=== PATIENT | female | born 1945 | race Caucasian/White ===

== ENCOUNTER 2018-09-21 10:37 | Inpatient (IN) | payer MEDICARE ==
[2018-09-21] MEDS ORDERED: ISOVUE-370 76%-LOCM 1 ML ONE (10:43)
[2018-09-21] MEDS ORDERED: Piperacillin/Tazobactam 4.5 GM VIAL ONE (11:36)
[2018-09-21 11:51] LABS: Anisocytosis SLIGHT = 6-15 cells (100X) (0-5/hpf); Band 18 % (5-11); Eosinophils 1 % (0-10); Hemoglobin 12.8 g/dL (12.0-16.0); Lymphocytes 11 % (21-51); MDiff Complete? YES; Mean Corpuscular HGB CONC 30.2 g/dL (32.0-36.0); Mean Corpuscular Hemoglobin 25.2 pg (27.0-31.0); Mean Corpuscular Volume 83.4 fL (78.0-98.0); Mean Platelet Volume 6.4 fL (7.4-10.4); Monocytes 7 % (0-10); Neutrophil 63 % (42-75); Platelet Count 154 thou/uL (130-400); RBC Distribution Width 22.4 % (11.5-14.5); Red Blood Cell (RBC) Count 5.07 mill/uL (4.20-5.40); White Blood Cell (WBC) Count 9.4 thou/uL (4.8-10.8)
--- NOTE | 2018-09-21 11:58 | RAD ---
RIGHT HIP 2 VIEWS: Date: 09/21/18 HISTORY: Fall. Right hip injury. FINDINGS: Joint space is preserved. Femoral head contour maintained. No acute fracture or dislocation. Osseous structures are demineralized. IMPRESSION: 1. Normal appearance of the right hip. 2. Osteoporosis. POS: [facility]
--- NOTE | 2018-09-21 11:59 | RAD ---
AP PELVIS 1 VIEW: Date: 09/21/18 HISTORY: Fall. Right hip injury. FINDINGS: No displaced sacral fractures are apparent. It is predominantly obscured by bowel content and postope rative changes. Left hip is in internal rotation and incompletely evaluated. Right hip unremarkable. Osseous structures are demineralized. IMPRESSION: Osteoporosis. No acute osseous abnormalities are demonstrated. POS: [facility]
--- NOTE | 2018-09-21 12:00 | RAD ---
PORTABLE AP CHEST: Date: 09/21/18 HISTORY: Patient fell from wheelchair. Unwitnessed fall. Sepsis alert. Left arm edema. COMPARISON: None available. FINDINGS: The cardiac silhouette and pulmonary vasculature are within normal limits. The lungs are clear. There are curvilinear densities overlying region of the mediastinum, likely related to overlying skin fold s. Vascular calcifications seen in thoracic aorta. Osteopenia is present. IMPRESSION: No acute cardiopulmonary process. POS: [facility]
[2018-09-21 12:20] LABS: ALT (SGPT) 33 U/L (8-55); AST (SGOT) 50 U/L (5-34); Albumin 2.5 g/dL (3.4-4.8); Alkaline Phosphatase 51 U/L (40-150); Anion Gap 16 mmol/L (10-20); BUN (Urea Nitrogen) 19 mg/dL (9.8-20.1); Bilirubin, Total 0.9 mg/dL (0.2-1.2); Calc. Creatinine Clearance 0 mL/min (70-130); Calcium 8.5 mg/dL (7.8-10.44); Carbon Dioxide 24 mmol/L (23-31); Chloride 103 mmol/L (98-107); Estimated GFR-MDRD 64; Globulin 4.3 g/dL (2.4-3.5); Glucose 171 mg/dL (83-110); Protein, Total 6.8 g/dL (6.0-8.3); Sodium 138 mmol/L (136-145)
[2018-09-21 12:54] LABS: Bilirubin Small (Negative); Blood, Urine Negative (Negative); Clarity CLOUDY (Clear); Glucose, Urine (Dipstick) Negative (Negative); Leukocyte Negative (Negative); Nitrite Negative (Negative); Protein, Urine (Dipstick) Trace mg/dL (Neg-Trace); Specific Gravity, Urine 1.024 (1.002-1.036)
--- NOTE | 2018-09-21 15:10 | CT ---
NONCONTRAST CT HEAD: Date: 10/09/18 HISTORY: Injury after unwitnessed fall. Patient wound lying on right side. COMPARISON: 01/18/17. FINDINGS: A few scattered low density areas are seen within the periventricular white matter which are nonspeci fic but likely reflective of mild chronic small vessel ischemic changes. There is no evidence of an a cute cortical infarction, hemorrhage, mass effect, or midline shift. Stable low density areas are aga in seen within the harpreet and mid brain, as well as the left cerebellar hemisphere, likely attributable to remote infarctions. There is no acute cortical infarction, hemorrhage, mass effect, or midline sh ift. There is a low density area in the left thalamus, which was not present on the prior study, comp atible with lacunar infarction of indeterminate again. Again, no acute cortical infarction or hemorrh age is seen. Mild cerebral and cerebellar volume loss is present. Ventricular system is normal in size, shape, and position for the degree of sulcal atrophy. Mucosal thickening is seen within the right maxillary antrum, bilateral ethmoidal air cells, as well as each frontal sinus. No calvarial fracture is identified. There is opacification of an inferior left mastoid air cell, als o seen on prior exam. Vascular calcifications are seen in the carotid siphons and involving the dista l vertebral artery, similar to prior study. IMPRESSION: 1. Lacunar infarction left thalamus of indeterminate age. This does represent interval change from dimitri jacobson in 2017. No acute cortical infarction is seen. 2. Remote infarctions involving the brain stem, harpreet, and left cerebellar hemisphere. 3. Cerebral and cerebellar volume loss. 4. No evidence of hemorrhage. 5. Sinus disease. POS: [facility]
--- NOTE | 2018-09-21 15:18 | CT ---
CT ARTERIOGRAM CHEST WITH IV CONTRAST AND 3D MIP IMAGING: Date: 09/21/18 HISTORY: Chest pain. Dyspnea. FINDINGS: There is good contrast opacification of the pulmonary arteries and thoracic aorta with normal origin of the great vessels. Right subclavian artery is tortuous and curves just anterior to the trachea abo ve the sternal notch. There is atelectasis at each lung base. Calcification within the arterial struc tures. Within the partially visualized upper abdomen, hyperdense stones are apparent within the gallb ladder lumen. A well circumscribed soft tissue density mass at the right suprarenal level measures at least 3.3 cm AP diameter and is at Hounsfield unit measurements greater than can be described as an adrenal adenoma. IMPRESSION: 1. No CT evidence of pulmonary embolus. 2. Atherosclerosis. 3. Cholelithiasis. 4. Partially visualized low density right suprarenal mass. Adrenal mass is favored. Please consider dedicated CT abdomen, with and without IV contrast, employing an adrenal adenoma prot ocol, for better characterization. POS: [facility]
[2018-09-21 16:09] LABS: Lactic Acid 1.5 mmol/L (0.5-2.2)
--- NOTE | 2018-09-21 16:34 | HP ---
PRIMARY CARE PHYSICIAN: Sara Wilson MD CHIEF COMPLAINT: The [facility]. HISTORY OF PRESENT ILLNESS: Ms. Luna is a 73-year-old female, who has had multiple strokes. She most recently has had a hemorrhagic stroke about 3 months ago according to her daughter, who is at the bedside. Apparently, she was in her usual state of health until today, where jail staff found her on the ground next to the wheelchair, this was an unwitnessed fall. She was pointing to her right side and so they were concerned that she may have injured herself after or during the fall. She was brought to the emergency room for evaluation. In the ER, she had a CT scan of the brain, which was negative. An x-ray of her pelvis and hips, which were negative for fractures, as well as a CT angiogram of her chest. The preliminary results are pending. There was concern for possible sepsis syndrome as she was a bit hypotensive and febrile and for this reason, she is going to be placed in observation. The patient's daughter says that she has been residing in the jail for the last few months. There, she is essentially wheelchair bound. She does not walk, but she had gotten to the point, where she was able to feed herself. Her speech is very limited and this is after her stroke and she also has difficulty with swallowing and has been "an aspiration risk and she does eat a pureed diet with thickened liquids". Otherwise, no other history is obtainable. REVIEW OF SYSTEMS: This is unobtainable as the patient has fairly severe dysarthria. PAST MEDICAL HISTORY: Significant for coronary artery disease, cerebral vascular disease with a cerebellar stroke that left her with left-sided weakness. A hemorrhagic stroke that left her with dysphagia and dysarthria and some right-sided deficits. Also has hypertension, anemia, and polyps removed. PAST SURGICAL HISTORY: She has had a colonoscopy recently, in which there was found bleeding polyps. She has had stents placed, lens implants, rods in her neck, and leg surgery. She has had breast augmentation and then reduction. ALLERGIES: TO PROTONIX AND PROCAINE. SOCIAL HISTORY: She is . She is a nonsmoker. She drinks socially, but not any more. Her daughter, Yola Mcclure is her medical power of litigation attorney. Her code status is DNAR and she resides at [facility], where she is essentially wheelchair bound. FAMILY HISTORY: Significant for heart disease in her father. CURRENT MEDICATIONS: Her current medications are taken from the jail records and include; 1. Metoprolol 25 mg twice a day. 2. Potassium chloride 20 mEq daily. 3. Simvastatin 40 mg at bedtime. 4. Vitamin C 1000 mg daily. 5. Iron sulfate 325 mg daily. 6. Tylenol p.r.n. 7. Tramadol 50 mg q.8 as needed. 8. Amlodipine 5 mg daily. 9. Lisinopril 30 mg daily. 10. Zyrtec [id number] as needed. 11. Flonase nasal spray. 12. Astelin nasal spray. PHYSICAL EXAMINATION: GENERAL: She is alert, unable to assess orientation due to her severe dysarthria. She is well developed and well nourished. She does appear to be in some distress, mainly emotional distress due to being in the hospital. VITAL SIGNS: The blood pressure was 89/50, heart rate 90, respiratory rate of 26, and her temperature was 100.6 rectally. HEENT: Her pupils are reactive and equal. NECK: There was no adenopathy. No bruits. LUNGS: Clear with an occasional rhonchi. There was no rales or wheezing. CARDIOVASCULAR: She had a normal S1 and S2. There was no S3 or S4. No murmurs, clicks, or rubs. ABDOMEN: Obese it is soft, nontender, and nondistended. Positive for bowel sounds. No rebound or guarding. EXTREMITIES: She has trace edema primarily around the ankles and some mild erythema on the dorsum of her feet. NEUROLOGIC: She has severe dysarthria, a flaccid paralysis of the left upper extremity, and weakness of the left lower extremity. SKIN AND INTEGUMENT: There is no significant skin changes and no rash. Also, she did have some significant swelling in the left upper extremity. LABORATORY RESULTS: White blood cell count is 9.4, hemoglobin is 12.8, hematocrit is 42.2, and platelet count is 154. Sodium 138, potassium 5.0, chloride is 102, CO2 is 24, BUN of 19, creatinine 0.86, and glucose is 171. ASSESSMENT AND PLAN: 1. This is a pleasant 73-year-old female, who had a fall from the jail. It appears as if she has not suffered any significant injury from this. There is no significant bruising on exam and her x-rays were negative for fracture. However, her lactic acid level was elevated and she had a low-grade temperature and an increased respiratory rate. Therefore, she will be monitored in observation overnight. We will place her on empiric antibiotics to cover for possible aspiration pneumonia and re-check her lab work in the morning. If she is clinically stable, then I would expect that she could be transferred back to the jail. 2. For hypertension, restart her home medications as well as p.r.n. medications as well. 3. History of cerebrovascular accident. Again, continue her statin. She does not appear to be on any anti-platelet or anticoagulation likely due to her recent hemorrhagic stroke and we will avoid any anticoagulants as a result. 4. Deep venous thrombosis prophylaxis will be with sequential compression devices only and we will re-evaluate her in the a.m.. Job ID: [id number]
[2018-09-21] MEDS ORDERED: hydrALAZINE 20 MG/ML VIAL SLOW IVP PRN (19:11)
[2018-09-21] MEDS: Sodium Chloride 0.9% 1,000 ML IV SCH (20:44)
[2018-09-21] MEDS: Metoprolol Tartrate 25 MG TAB PO SCH (20:48)
[2018-09-21] MEDS: Atorvastatin Calcium 20 MG TAB PO SCH (20:48)
[2018-09-22 00:04] VITALS: BMI 22.3
[2018-09-22 08:03] LABS: Anion Gap 10 mmol/L (10-20); BUN (Urea Nitrogen) 13 mg/dL (9.8-20.1); Calc. Creatinine Clearance 89 mL/min (70-130); Calcium 7.9 mg/dL (7.8-10.44); Carbon Dioxide 23 mmol/L (23-31); Chloride 109 mmol/L (98-107); Estimated GFR-MDRD Greater than 90; Glucose 77 mg/dL (83-110); Potassium 3.7 mmol/L (3.5-5.1); Sodium 138 mmol/L (136-145)
[2018-09-22 09:30] LABS: Band 14 % (5-11); Eosinophils 1 % (0-10); Lymphocytes 9 % (21-51); MDiff Complete? YES; Mean Corpuscular HGB CONC 30.9 g/dL (32.0-36.0); Mean Corpuscular Hemoglobin 25.1 pg (27.0-31.0); Mean Corpuscular Volume 81.3 fL (78.0-98.0); Metamyelocyte 2 % (0-0); Monocytes 7 % (0-10); Neutrophil 67 % (42-75); Platelet Count 153 thou/uL (130-400); RBC Distribution Width 21.5 % (11.5-14.5); Red Blood Cell (RBC) Count 3.99 mill/uL (4.20-5.40); White Blood Cell (WBC) Count 5.9 thou/uL (4.8-10.8)
[2018-09-22] MEDS: Sodium Chloride 0.9% 1,000 ML IV SCH ×2 (10:33→22:48)
[2018-09-22] MEDS: Metoprolol Tartrate 25 MG TAB PO SCH ×2 (10:51→20:27)
[2018-09-22] MEDS: Lisinopril 20 MG TAB PO SCH (10:51)
[2018-09-22] MEDS: Amlodipine 5 MG TAB PO SCH (10:51)
--- NOTE | 2018-09-22 15:06 | PDOC.PN ---
- Subjective Encounter Start Date: 09/22/18 Encounter Start Time: 15:05 Ms. Luna was seen today in follow-up of fall and fever. she appears to be at her baseline. Her son is at the bedside feeding her. - Objective Resuscitation Status - Order Detail: 09/21/18 15:58 Resuscitation Status Routine Resuscitation Status: DNAR: NO Resuscitation Discussed with: discussed with the patient's daughter Yola MILLER Reviewed: Yes Vital Signs & Weight: Vital Signs (12 hours) Temp Pulse Resp BP Pulse Ox 09/22/18 13:55 97.9 F 81 20 96/59 L 92 L 09/22/18 10:51 79 09/22/18 08:07 97.8 F 79 20 107/64 97 09/22/18 08:00 97 09/22/18 05:10 98.9 F 81 22 H 93/56 L 98 Weight Weight 130 lb Result Diagrams: 09/22/18 06:52 09/22/18 06:52 Phys Exam - Physical Examination HEENT: PERRLA Respiratory: no wheezing, no rales, no rhonchi, clear to auscultation bilateral Cardiovascular: RRR, no significant murmur, no rub Gastrointestinal: soft, non-tender, positive bowel sounds Musculoskeletal: no edema Dx/Plan (1) Fever Code(s): R50.9 - FEVER, UNSPECIFIED Status: Acute (2) CVA (cerebral vascular accident) Code(s): I63.9 - CEREBRAL INFARCTION, UNSPECIFIED Status: Chronic (3) Dysphagia as late effect of stroke Code(s): I69.391 - DYSPHAGIA FOLLOWING CEREBRAL INFARCTION Status: Chronic (4) Hypertension Code(s): I10 - ESSENTIAL (PRIMARY) HYPERTENSION Status: Chronic - Plan * Fever and sepsis syndrome- continue empiric Levaquin- await final cultures- negative so far * HTN- blood pressure is on the lower side, but she is asymptomatic- consider cutting back on her antihypertensives if this trend continues- however she has had a recent hemorrhagic stroke * CVA- multiple in the past 6 months, and a hemorrhagic stroke 3 months ago- stable * Back to the [place] tomorrow if stable .
--- NOTE | 2018-09-22 17:42 | RAD ---
LEFT FOREARM TWO VIEWS: HISTORY: Arm pain. TECHNIQUE: AP and lateral views of the left forearm are obtained. FINDINGS: Two views of the left forearm demonstrate an old healed distal left radial fracture. Plates and scre ws are in place. No evidence of loosening is seen. No other left forearm fractures or bony lesions are seen. IMPRESSION: No evidence of acute left forearm abnormalities noted. POS: [facility]
--- NOTE | 2018-09-22 17:50 | RAD ---
LEFT SHOULDER TWO VIEWS: HISTORY: Left arm pain. TECHNIQUE: AP and lateral views of the left shoulder are obtained. FINDINGS: No evidence of left shoulder fractures, subluxations, or bony lesions seen. IMPRESSION: Normal two views left shoulder. POS: [facility]
[2018-09-22] MEDS: Acetaminophen 325 MG TAB PO PRN (18:25)
[2018-09-22] MEDS: Atorvastatin Calcium 20 MG TAB PO SCH (20:27)
[2018-09-23] MEDS: Acetaminophen 325 MG TAB PO PRN (07:56)
[2018-09-23] MEDS: Amlodipine 5 MG TAB PO SCH (07:56)
[2018-09-23] MEDS: Metoprolol Tartrate 25 MG TAB PO SCH ×2 (07:57→20:27)
[2018-09-23] MEDS: Lisinopril 20 MG TAB PO SCH (10:50)
--- NOTE | 2018-09-23 10:50 | PDOC.PN ---
- Subjective Encounter Start Date: 09/23/18 Encounter Start Time: 12:50 Subjective: Patient difficult to understand. Complains of being cold. Wants to go -: home. States she lives in an apartment. Doen't remember living in a -: retirement. Knows she is in a hospital. - Objective Resuscitation Status - Order Detail: 09/21/18 15:58 Resuscitation Status Routine Resuscitation Status: DNAR: NO Resuscitation Discussed with: discussed with the patient's daughter Yola MILLER Reviewed: Yes Vital Signs & Weight: Vital Signs (12 hours) Temp Pulse Resp BP BP Pulse Ox 09/23/18 07:56 68 110/67 09/23/18 07:51 97.9 F 68 20 110/67 96 09/23/18 00:35 98.5 F 88 20 106/68 95 Weight Weight 130 lb I&O: 09/22/18 09/23/18 09/24/18 06:59 06:59 06:59 Intake Total 750 Balance 750 Result Diagrams: 09/22/18 06:52 09/22/18 06:52 Phys Exam - Physical Examination Constitutional: NAD HEENT: moist MMs very weak voice, facial droop and slurred speech Respiratory: no wheezing, no rales, no rhonchi Cardiovascular: RRR, no significant murmur Gastrointestinal: soft, positive bowel sounds Neurological: non-focal, moves all 4 limbs Deviation from normal: alert, oriented to person Dx/Plan (1) Fever Code(s): R50.9 - FEVER, UNSPECIFIED Status: Resolved Comment: single fever to 100.6 in ER, none since then, possibly had some aspiration but no infiltrate on CXR and normal WBC, on abx (2) CVA (cerebral vascular accident) Code(s): I63.9 - CEREBRAL INFARCTION, UNSPECIFIED Status: Chronic (3) Dysphagia as late effect of stroke Code(s): I69.391 - DYSPHAGIA FOLLOWING CEREBRAL INFARCTION Status: Chronic Comment: seen by speech therapy, severe aspiration with all foods and liquids, made NPO, will discuss with family (4) Hypertension Code(s): I10 - ESSENTIAL (PRIMARY) HYPERTENSION Status: Chronic - Plan cont current plan of care, continue antibiotics, speech therapy Attempted to call patient's daughter but the number we have says not -: accepting any calls. Apparently speech therapy was unable to get a hold -: of her also. Will see if Palliative care is familiar with this patient or -: can contact family. * . - Discharge Day Encounter end time: 13:00
[2018-09-23] MEDS: Sodium Chloride 0.9% 1,000 ML IV SCH (13:10)
[2018-09-23] MEDS: Atorvastatin Calcium 20 MG TAB PO SCH (20:27)
[2018-09-24] MEDS: Sodium Chloride 0.9% 1,000 ML IV SCH ×2 (02:12→14:54)
[2018-09-24] MEDS: Lisinopril 20 MG TAB PO SCH (08:38)
[2018-09-24] MEDS: Amlodipine 5 MG TAB PO SCH (08:39)
[2018-09-24] MEDS: Metoprolol Tartrate 25 MG TAB PO SCH ×2 (08:39→20:23)
--- NOTE | 2018-09-24 09:17 | PDOC.PN ---
- Subjective Encounter Start Date: 09/24/18 Encounter Start Time: 11:10 Subjective: Patient sleeping heavily, difficult to arrouse. Was very awake this morning -: when seen by ST, still with sig aspiration, better with nectar thick. Patie -: was communicative at that time, wanted to try to eat with risk. - Objective Resuscitation Status - Order Detail: 09/21/18 15:58 Resuscitation Status Routine Resuscitation Status: DNAR: NO Resuscitation Discussed with: discussed with the patient's daughter Yola MILLER Reviewed: Yes Vital Signs & Weight: Vital Signs (12 hours) Temp Pulse Resp BP BP BP Pulse Ox 09/24/18 08:39 80 103/63 09/24/18 08:38 103/63 09/24/18 07:26 97.7 F 81 22 H 103/63 95 09/24/18 05:43 98.2 F 88 20 111/69 91 L 09/24/18 00:46 98.1 F 89 20 119/71 92 L Weight Weight 130 lb I&O: 09/23/18 09/24/18 09/25/18 06:59 06:59 06:59 Intake Total 750 1140 Balance 750 1140 Result Diagrams: 09/22/18 06:52 09/22/18 06:52 Phys Exam - Physical Examination Constitutional: NAD HEENT: moist MMs Respiratory: no wheezing, no rales, no rhonchi very odd but regular breathing pattern with three small inhalations followe by three exhalations, nurse states NH reported this is nml for patient Cardiovascular: RRR, no significant murmur Musculoskeletal: no edema Neurological: non-focal Deviation from normal: very sleepy right now, not communicating Dx/Plan (1) Fever Code(s): R50.9 - FEVER, UNSPECIFIED Status: Resolved Comment: single fever to 100.6 in ER, none since then, possibly had some aspiration but no infiltrate on CXR and normal WBC, on abx (2) CVA (cerebral vascular accident) Code(s): I63.9 - CEREBRAL INFARCTION, UNSPECIFIED Status: Chronic (3) Dysphagia as late effect of stroke Code(s): I69.391 - DYSPHAGIA FOLLOWING CEREBRAL INFARCTION Status: Chronic Comment: seen by speech therapy, severe aspiration with all foods and liquids, made NPO, have left message for MPOA to call back but not heard from her yet, patient was more coherent with ST, but given her fluctuating orientation and alertness, I am not sure how well patient can understand or consent to feeds with extreme risk. (4) Hypertension Code(s): I10 - ESSENTIAL (PRIMARY) HYPERTENSION Status: Chronic - Plan cont current plan of care need to determine course of action concerning severe dysphagia, unable to -: contact daughter yet * . - Discharge Encounter end time: 11:20
--- NOTE | 2018-09-24 11:56 | PQF ---
CLINICAL DOCUMENTATION IMPROVEMENT CLARIFICATION FORM: ICD-10 Updated PLEASE DO AN ADDENDUM TO THE PROGRESS NOTE WITH ANY DOCUMENTATION UPDATES OR ADDITIONS AND CARRY THROUGH TO DC SUMMARY. THANK YOU. DATE: 09/24/2018 ATTN: Dr. Trevizo Please exercise your independent, professional judgment in responding to the clarification form. Clinical indicators are provided on the bottom of this form for your review Please check appropriate box(es): [ X ] Sepsis due to: (Pna, etc.) ___Aspiration pneumonitis __ [ ] SIRS due to non-infectious process (please specify etiology) [ ] with organ dysfunction [ ] without organ dysfunction [ ] Localized infection without sepsis [ ] Other diagnosis [ ] Unable to determine In addition, please specify: Present on Admission (POA): [ X ] Yes [ ] No [ ] Unable to determine For continuity of documentation, please document condition throughout progress notes and discharge summary. Thank You. CLINICAL INDICATORS - SIGNS / SYMPTOMS / LABS H&P 3/: BP 89/50, HR 90, resp. rate 26, Temp 100.6 Severe dysarthria lactic acid level was elevated and she had low grade temp. and increased resp. rate. Will place her on empiric antibiotics to cover for possible aspiration pneumonia Labs: 3 Lactic Acid 3.8 Glucose 171 PN 3: Fever and sepsis syndrome - continue empiric Levaquin - await final cultures PN 3: Fever resolved. Single fever to 100.6 in ER, none since then, possibly had some aspiration but no infiltrate on CXR and normal WBC, on abx RISKS: H&P 3/2: 73 yr old. Significant CAD. A hemorrhagic stroke that left her with dysphagia and dysarthria and r sided deficits. HTN. TREATMENT: ORDER 3: NS IV 75 mls/hr ORDER 3: Levaquin 500 mg IV Thank you, Ellie (This form is maintained as a part of the permanent medical record) 2014 [employer] All Rights Reserved Ellie Garcia RN, BSN [email or web address] Office: [phone] [facility]
--- NOTE | 2018-09-24 12:49 | PQF ---
CLINICAL DOCUMENTATION IMPROVEMENT CLARIFICATION FORM: ICD-10 Updated PLEASE DO AN ADDENDUM TO THE PROGRESS NOTE WITH ANY DOCUMENTATION UPDATES OR ADDITIONS AND CARRY THROUGH TO DC SUMMARY. THANK YOU. DATE: 09/24/2018 ATTN: Dr. Trevizo Please exercise your independent, professional judgment in responding to the clarification form. Clinical indicators are provided on the bottom of this form for your review Please check appropriate box(s): [ X ] I (concur) with the Nursing Assessment findings as stated below. [ X ] Pressure Ulcer: (Stage I: Erythema; Stage II: Partial thickness; Stage III : Full thickness; Stage IV: Necrosis to muscle/bone) [ X ] Location: ___Sacrum POA: [ X ] Yes [ ] No[ ] Unable to determine Stage (I to IV): _2__(Left___Right___Bilateral___N/A__) [ ] Location: POA: [ ] Yes [ ] No[ ] Unable to determine Stage (I to IV): ___(Left___Right___Bilateral___N/A__) [ ] No pressure ulcer diagnosis [ ] Deep tissue injury [ ] Other diagnosis [ ] Unable to determine In addition, please specify: Present on Admission (POA): [ X ] Yes [ ] No [ ] Unable to determine For continuity of documentation, please document condition throughout progress notes and discharge summary. Thank You. CLINICAL INDICATORS - SIGNS / SYMPTOMS / LABS ER Nurses Assessment Skin 09/21: pressure ulcer to the sacrum, Stage II Nursing Assessment 09/21 @ 1999: SCG x2 Pressure Ulcer. Stage II x 2 areas. RISKS: H&P 09/21: 73 yr old. Recently has had a hemorrhagic stroke about 3 months ago. Essentially wheelchair bound. Hx significant for CAD, Cerebral vascular disease. HTN TREATMENT: Skin interventions per Nursing protocol: Skin kept from excessive moisture. Turn 30 degrees side to side. Support pillows placed - Pre-ulcer skin changes limited to persistent focal edema (Stage 1) Abrasion, blister, partial thickness skin loss involving epidermis and/or dermis (Stage 2) Full thickness skin loss involving damage or necrosis of SQ tissue. (Stage 3) Necrosis of soft tissue through to underlying muscle, tendon, or bone. (Stage 4) Purple or maroon discolored skin or blood filled blister Thank you, Ellie (This form is maintained as a part of the permanent medical record) 2015 [employer] All Rights Reserved Ellie Garcia RN, BSN [email or web address] Office: [phone] [facility]
[2018-09-24] MEDS ORDERED: Acetaminophen 650 MG Suppository PR PRN (14:42)
[2018-09-24] MEDS: Atorvastatin Calcium 20 MG TAB PO SCH (20:23)
[2018-09-25] MEDS: Sodium Chloride 0.9% 1,000 ML IV SCH (03:46)
[2018-09-25] MEDS: Amlodipine 5 MG TAB PO SCH (07:51)
[2018-09-25] MEDS: Lisinopril 20 MG TAB PO SCH (07:52)
[2018-09-25] MEDS: Metoprolol Tartrate 25 MG TAB PO SCH ×2 (07:52→20:45)
--- NOTE | 2018-09-25 09:34 | PDOC.PN ---
- Subjective Encounter Start Date: 09/25/18 Encounter Start Time: 11:50 Subjective: Patient more alert today. Can't understand her language. - Objective Resuscitation Status - Order Detail: 09/21/18 15:58 Resuscitation Status Routine Resuscitation Status: DNAR: NO Resuscitation Discussed with: discussed with the patient's daughter Yola MILLER Reviewed: Yes Vital Signs & Weight: Vital Signs (12 hours) Temp Pulse Resp BP BP Pulse Ox 09/25/18 07:52 107/66 09/25/18 07:51 82 107/66 09/25/18 07:43 97.4 F L 82 20 107/66 96 Weight Weight 130 lb I&O: 09/24/18 09/25/18 09/26/18 06:59 06:59 06:59 Intake Total 1140 1846 Balance 1140 1846 Result Diagrams: 09/22/18 06:52 09/22/18 06:52 Phys Exam - Physical Examination Constitutional: NAD HEENT: moist MMs Respiratory: no wheezing, no rales, no rhonchi stacatto breathing pattern unchanged Cardiovascular: RRR Gastrointestinal: soft, positive bowel sounds Neurological: non-focal, moves all 4 limbs Deviation from normal: speech not understandible, able to follow commands Dx/Plan (1) Fever Code(s): R50.9 - FEVER, UNSPECIFIED Status: Resolved Comment: Fever and low BP initially in ER qualifying as sepsis, now resolved, none since then, possibly had some aspiration but no infiltrate on CXR and normal WBC, on abx (2) CVA (cerebral vascular accident) Code(s): I63.9 - CEREBRAL INFARCTION, UNSPECIFIED Status: Chronic (3) Dysphagia as late effect of stroke Code(s): I69.391 - DYSPHAGIA FOLLOWING CEREBRAL INFARCTION Status: Chronic Comment: Spoke with daughter and MPOA, she confirmed that patient never wanted feeding tube after any of her previous strokes, wants to eat with risk no matter how severe (4) Hypertension Code(s): I10 - ESSENTIAL (PRIMARY) HYPERTENSION Status: Chronic - Plan cont current plan of care, continue antibiotics, speech therapy Will have speech therapy start safest diet possible, likely home -: tomorrow if can eat. * . - Discharge Day Encounter end time: 12:05
[2018-09-25] MEDS: Atorvastatin Calcium 20 MG TAB PO SCH (20:45)
[2018-09-26] MEDS: traMADol HCl 50 MG TAB PO PRN (00:38)
[2018-09-26 08:15] LABS: Anion Gap 14 mmol/L (10-20); BUN (Urea Nitrogen) 15 mg/dL (9.8-20.1); Calc. Creatinine Clearance 71 mL/min (70-130); Calcium 7.8 mg/dL (7.8-10.44); Carbon Dioxide 16 mmol/L (23-31); Chloride 113 mmol/L (98-107); Estimated GFR-MDRD 90; Glucose 106 mg/dL (83-110); Potassium 3.5 mmol/L (3.5-5.1); Sodium 139 mmol/L (136-145)
--- NOTE | 2018-09-26 08:16 | PDOC.PN ---
- Subjective Encounter Start Date: 09/26/18 Encounter Start Time: 10:10 Subjective: Patient unchanged. Eating with risks. Wants to go home. Family -: deciding on home with hospice vs. back to [place]. - Objective Resuscitation Status - Order Detail: 09/21/18 15:58 Resuscitation Status Routine Resuscitation Status: DNAR: NO Resuscitation Discussed with: discussed with the patient's daughter Yola MILLER Reviewed: Yes Vital Signs & Weight: Vital Signs (12 hours) Temp Pulse Resp BP Pulse Ox 09/26/18 08:00 97.4 F L 85 20 92/59 L 94 L 09/25/18 20:23 98.7 F 102 H 18 126/77 91 L Weight Weight 130 lb I&O: 09/25/18 09/26/18 09/27/18 06:59 06:59 06:59 Intake Total 1846 1015 Balance 1846 1015 Result Diagrams: 09/26/18 07:43 09/26/18 07:43 Phys Exam - Physical Examination Constitutional: NAD HEENT: moist MMs Respiratory: no wheezing, no rales, no rhonchi irregular breathing pattern unchanged Cardiovascular: RRR, no significant murmur Gastrointestinal: soft, positive bowel sounds Musculoskeletal: no edema Deviation from normal: alert, can't understand most of her words Dx/Plan (1) Fever Code(s): R50.9 - FEVER, UNSPECIFIED Status: Resolved Comment: Fever and low BP initially in ER qualifying as sepsis, now resolved, none since then, possibly had some aspiration but no infiltrate on CXR and normal WBC, on abx (2) CVA (cerebral vascular accident) Code(s): I63.9 - CEREBRAL INFARCTION, UNSPECIFIED Status: Chronic (3) Dysphagia as late effect of stroke Code(s): I69.391 - DYSPHAGIA FOLLOWING CEREBRAL INFARCTION Status: Chronic Comment: Spoke with daughter and MPOA, she confirmed that patient never wanted feeding tube after any of her previous strokes, wants to eat with risk no matter how severe (4) Hypertension Code(s): I10 - ESSENTIAL (PRIMARY) HYPERTENSION Status: Chronic - Plan cont current plan of care, continue antibiotics, PT/OT, speech therapy Family discussing options with hospice, patient wants to go home -: I called the daughter at and left message to call back -: so we can discuss dispo plan. * . - Discharge Day Encounter end time: 10:20
[2018-09-26] MEDS: Amlodipine 5 MG TAB PO SCH (08:34)
[2018-09-26] MEDS: Lisinopril 20 MG TAB PO SCH (08:34)
[2018-09-26] MEDS: Metoprolol Tartrate 25 MG TAB PO SCH ×2 (08:35→20:00)
[2018-09-26 09:24] LABS: Band 9 % (5-11); Hemoglobin 11.5 g/dL (12.0-16.0); Lymphocytes 12 % (21-51); MDiff Complete? YES; Mean Corpuscular HGB CONC 30.8 g/dL (32.0-36.0); Mean Corpuscular Volume 84.4 fL (78.0-98.0); Mean Platelet Volume 5.1 fL (7.4-10.4); Monocytes 13 % (0-10); Neutrophil 63 % (42-75); Platelet Count 120 thou/uL (130-400); Platelet Morphology Comment Appears Decreased; Polychromasia MODERATE = 3-4 cells (100X) (0-2/hpf); RBC Distribution Width 21.7 % (11.5-14.5); Reactive Lymphocytes 3 % (0-10); Red Blood Cell (RBC) Count 4.43 mill/uL (4.20-5.40); Reflex for Review?? NO; Small Platelets MODERATE; White Blood Cell (WBC) Count 8.6 thou/uL (4.8-10.8)
[2018-09-26] MEDS: Atorvastatin Calcium 20 MG TAB PO SCH (20:00)
[2018-09-27] MEDS: Amlodipine 5 MG TAB PO SCH (09:08)
[2018-09-27] MEDS: Metoprolol Tartrate 25 MG TAB PO SCH ×2 (09:09→21:40)
[2018-09-27] MEDS: Lisinopril 20 MG TAB PO SCH (09:09)
[2018-09-27] MEDS: traMADol HCl 50 MG TAB PO PRN (10:40)
--- NOTE | 2018-09-27 12:03 | PDOC.PN ---
- Subjective Encounter Start Date: 09/27/18 Encounter Start Time: 08:10 -: old records requested/rev Patient seen and examined. No new complaints. No overnight events pt is confused, has tachypnea - Objective Resuscitation Status - Order Detail: 09/21/18 15:58 Resuscitation Status Routine Resuscitation Status: DNAR: NO Resuscitation Discussed with: discussed with the patient's daughter Yola MILLER Reviewed: Yes Vital Signs & Weight: Vital Signs (12 hours) Temp Pulse Resp BP BP BP Pulse Ox 09/27/18 09:09 100/67 09/27/18 09:08 101 H 100/67 09/27/18 08:00 97.7 F 94 28 H 100/67 95 09/27/18 07:51 98.2 F 95 26 H 103/67 93 L 09/27/18 04:54 98.9 F 95 16 96/64 93 L 09/27/18 00:20 98.3 F 93 18 108/68 93 L Weight Weight 130 lb I&O: 09/26/18 09/27/18 09/28/18 06:59 06:59 06:59 Intake Total 1015 390 Balance 1015 390 Result Diagrams: 09/26/18 07:43 09/26/18 07:43 Phys Exam - Physical Examination Constitutional: NAD HEENT: PERRLA, sclera anicteric Neck: no JVD, supple Respiratory: no wheezing, no rales, no rhonchi Cardiovascular: RRR, no significant murmur, no rub Gastrointestinal: soft, non-tender, no distention Musculoskeletal: no edema, pulses present Lymphatic: no nodes Psychiatric: normal affect Skin: no rash, normal turgor Dx/Plan (1) CVA (cerebral vascular accident) Code(s): I63.9 - CEREBRAL INFARCTION, UNSPECIFIED Status: Chronic (2) Dysphagia as late effect of stroke Code(s): I69.391 - DYSPHAGIA FOLLOWING CEREBRAL INFARCTION Status: Chronic Comment: Spoke with daughter and MPOA, she confirmed that patient never wanted feeding tube after any of her previous strokes, wants to eat with risk no matter how severe (3) Hypertension Code(s): I10 - ESSENTIAL (PRIMARY) HYPERTENSION Status: Chronic (4) Fever Code(s): R50.9 - FEVER, UNSPECIFIED Status: Resolved Comment: Fever and low BP initially in ER qualifying as sepsis, now resolved, none since then, possibly had some aspiration but no infiltrate on CXR and normal WBC, on abx (5) Sepsis Code(s): A41.9 - SEPSIS, UNSPECIFIED ORGANISM Status: Resolved - Plan cont current plan of care, continue antibiotics, social media specialist * medication reviewed as below * symptomatic treatment * continue IVF * continue levaquin. * palliative care on case, hospice is planned Review of Systems - Review of Systems Other: unable to review due to her cognitive status - Medications/Allergies Allergies/Adverse Reactions: Allergies Allergy/AdvReac Type Severity Reaction Status Date / Time procaine Allergy Verified 09/21/18 23:57 Medications: Current Medications Acetaminophen (Tylenol) 650 mg PO Q4H PRN PRN Reason: Headache/Fever/Mild Pain (1-3) Last Admin: 09/23/18 07:56 Dose: 650 mg Acetaminophen (Tylenol) 650 mg [place] Q6H PRN PRN Reason: Pain Last Admin: 09/24/18 14:46 Dose: 650 mg Amlodipine Besylate (Norvasc) 5 mg PO DAILY [facility] Last Admin: 09/27/18 09:08 Dose: Not Given Atorvastatin Calcium (Lipitor) 20 mg PO HS [facility] Last Admin: 09/26/18 20:00 Dose: 20 mg Hydralazine HCl (Apresoline) 10 mg SLOW IVP Q4H PRN PRN Reason: SBP > 180 and HR < 70 Levofloxacin 500 mg/ Device 100 mls @ 100 mls/hr IVPB 2100 [facility] Last Admin: 09/26/18 19:59 Dose: 100 mls Lisinopril (Zestril) 30 mg PO DAILY [facility] Last Admin: 09/27/18 09:09 Dose: Not Given Lorazepam (Ativan) 0.5 mg PO Q4H PRN PRN Reason: Anxiety Metoprolol Tartrate (Lopressor) 25 mg PO BID [facility] Last Admin: 09/27/18 09:09 Dose: Not Given Tramadol HCl (Ultram) 50 mg PO Q6H PRN PRN Reason: Moderate Pain (4-6) Last Admin: 09/27/18 10:40 Dose: 50 mg
[2018-09-27] MEDS: Atorvastatin Calcium 20 MG TAB PO SCH (21:41)
[2018-09-28] MEDS: traMADol HCl 50 MG TAB PO PRN (08:27)
[2018-09-28] MEDS: Amlodipine 5 MG TAB PO SCH (08:28)
[2018-09-28] MEDS: Lisinopril 20 MG TAB PO SCH (08:28)
[2018-09-28] MEDS: Metoprolol Tartrate 25 MG TAB PO SCH ×2 (08:29→20:48)
--- NOTE | 2018-09-28 10:24 | PDOC.PN ---
- Subjective Encounter Start Date: 09/28/18 Encounter Start Time: 09:10 Patient seen and examined. No overnight events, no family bedside, needs hospice for this pt, she is appearing in pain - Objective Resuscitation Status - Order Detail: 09/21/18 15:58 Resuscitation Status Routine Resuscitation Status: DNAR: NO Resuscitation Discussed with: discussed with the patient's daughter Yola MILLER Reviewed: Yes Vital Signs & Weight: Vital Signs (12 hours) Temp Pulse Resp BP BP Pulse Ox 09/28/18 08:28 94 94/61 09/28/18 08:00 99 09/28/18 07:41 98.5 F 88 24 H 94/61 99 09/28/18 04:22 97.9 F 88 20 99/64 Weight Weight 130 lb I&O: 09/27/18 09/28/18 09/29/18 06:59 06:59 07:59 Intake Total 390 580 Balance 390 580 Result Diagrams: 09/26/18 07:43 09/26/18 07:43 Phys Exam - Physical Examination Constitutional: NAD HEENT: PERRLA, sclera anicteric Neck: no JVD, supple Respiratory: no wheezing, no rales, no rhonchi Cardiovascular: RRR, no significant murmur Gastrointestinal: soft, non-tender, no distention Musculoskeletal: no edema, pulses present Lymphatic: no nodes Skin: no rash, normal turgor Dx/Plan (1) CVA (cerebral vascular accident) Code(s): I63.9 - CEREBRAL INFARCTION, UNSPECIFIED Status: Chronic (2) Dysphagia as late effect of stroke Code(s): I69.391 - DYSPHAGIA FOLLOWING CEREBRAL INFARCTION Status: Chronic Comment: Spoke with daughter and MPOA, she confirmed that patient never wanted feeding tube after any of her previous strokes, wants to eat with risk no matter how severe (3) Hypertension Code(s): I10 - ESSENTIAL (PRIMARY) HYPERTENSION Status: Chronic (4) Fever Code(s): R50.9 - FEVER, UNSPECIFIED Status: Resolved Comment: Fever and low BP initially in ER qualifying as sepsis, now resolved, none since then, possibly had some aspiration but no infiltrate on CXR and normal WBC, on abx (5) Sepsis Code(s): A41.9 - SEPSIS, UNSPECIFIED ORGANISM Status: Resolved - Plan cont current plan of care, case management social worker * pt is ideal candidate for hospice care * medication reviewed as below * symptomatic treatment * continue levaquin * will add morphin for comfort . Review of Systems - Review of Systems Other: not reliable due to her non verbal status - Medications/Allergies Allergies/Adverse Reactions: Allergies Allergy/AdvReac Type Severity Reaction Status Date / Time procaine Allergy Verified 09/21/18 23:57 Medications: Current Medications Acetaminophen (Tylenol) 650 mg PO Q4H PRN PRN Reason: Headache/Fever/Mild Pain (1-3) Last Admin: 09/23/18 07:56 Dose: 650 mg Acetaminophen (Tylenol) 650 mg [place] Q6H PRN PRN Reason: Pain Last Admin: 09/24/18 14:46 Dose: 650 mg Amlodipine Besylate (Norvasc) 5 mg PO DAILY [facility] Last Admin: 09/28/18 08:28 Dose: Not Given Atorvastatin Calcium (Lipitor) 20 mg PO HS [facility] Last Admin: 09/27/18 21:41 Dose: 20 mg Hydralazine HCl (Apresoline) 10 mg SLOW IVP Q4H PRN PRN Reason: SBP > 180 and HR < 70 Levofloxacin 500 mg/ Device 100 mls @ 100 mls/hr IVPB 2100 [facility] Last Admin: 09/27/18 21:40 Dose: 100 mls Lisinopril (Zestril) 30 mg PO DAILY [facility] Last Admin: 09/28/18 08:28 Dose: Not Given Lorazepam (Ativan) 0.5 mg PO Q4H PRN PRN Reason: Anxiety Metoprolol Tartrate (Lopressor) 25 mg PO BID [facility] Last Admin: 09/28/18 08:29 Dose: Not Given Morphine Sulfate (Morphine) 2 mg SLOW IVP Q4H PRN PRN Reason: Pain Tramadol HCl (Ultram) 50 mg PO Q6H PRN PRN Reason: Moderate Pain (4-6) Last Admin: 09/28/18 08:27 Dose: 50 mg
[2018-09-28] MEDS: Atorvastatin Calcium 20 MG TAB PO SCH (20:48)
[2018-09-28] MEDS: Morphine 2 MG/ML SYRINGE SLOW IVP PRN (21:22)
--- NOTE | 2018-09-28 22:15 | EKG ---
Test Reason : Blood Pressure : / mmHG Vent. Rate : 097 BPM Atrial Rate : 097 BPM P-R Int : 134 ms QRS Dur : 080 ms QT Int : 386 ms P-R-T Axes : 050 039 074 degrees QTc Int : 490 ms Normal sinus rhythm Nonspecific T wave abnormality Prolonged QT Abnormal ECG Confirmed by RANDY GARCIA, NIKKY ([id number]), assistant film editor KITTY HEATH ([id number]) on 09/28/2018 10:15:08 PM Referred By: Confirmed By:NIKKY PADILLA MD
[2018-09-29] MEDS: Lorazepam 0.5 MG TAB PO PRN ×2 (00:48→20:21)
[2018-09-29] MEDS: Amlodipine 5 MG TAB PO SCH (08:28)
[2018-09-29] MEDS: Lisinopril 20 MG TAB PO SCH (08:29)
[2018-09-29] MEDS: Metoprolol Tartrate 25 MG TAB PO SCH ×2 (08:29→20:22)
--- NOTE | 2018-09-29 09:57 | PDOC.PN ---
- Subjective Encounter Start Date: 09/29/18 Encounter Start Time: 08:45 Patient seen and examined. No overnight events - Objective Resuscitation Status - Order Detail: 09/21/18 15:58 Resuscitation Status Routine Resuscitation Status: DNAR: NO Resuscitation Discussed with: discussed with the patient's daughter Yola MILLER Reviewed: Yes Vital Signs & Weight: Vital Signs (12 hours) Temp Pulse Resp BP Pulse Ox 09/29/18 08:10 99.0 F 73 22 H 92/58 L 95 Weight Weight 130 lb I&O: 09/28/18 09/29/18 09/30/18 05:59 06:59 06:59 Intake Total 250 Balance 250 Result Diagrams: 09/26/18 07:43 09/26/18 07:43 Phys Exam - Physical Examination Constitutional: NAD HEENT: PERRLA, sclera anicteric Neck: no JVD, supple Respiratory: no wheezing, no rales, no rhonchi Cardiovascular: RRR, no significant murmur, no rub Gastrointestinal: soft, non-tender, no distention, positive bowel sounds Musculoskeletal: no edema, pulses present Lymphatic: no nodes Skin: no rash, normal turgor Dx/Plan (1) CVA (cerebral vascular accident) Code(s): I63.9 - CEREBRAL INFARCTION, UNSPECIFIED Status: Chronic (2) Dysphagia as late effect of stroke Code(s): I69.391 - DYSPHAGIA FOLLOWING CEREBRAL INFARCTION Status: Chronic Comment: Spoke with daughter and MPOA, she confirmed that patient never wanted feeding tube after any of her previous strokes, wants to eat with risk no matter how severe (3) Hypertension Code(s): I10 - ESSENTIAL (PRIMARY) HYPERTENSION Status: Chronic (4) Fever Code(s): R50.9 - FEVER, UNSPECIFIED Status: Resolved Comment: Fever and low BP initially in ER qualifying as sepsis, now resolved, none since then, possibly had some aspiration but no infiltrate on CXR and normal WBC, on abx (5) Sepsis Code(s): A41.9 - SEPSIS, UNSPECIFIED ORGANISM Status: Resolved - Plan cont current plan of care, continue antibiotics, social worker school * continue levaquin * continue comfort care * she needs hospice at facility if arranged * her prognosis is very poor * medication reviewed as below * symptomatic treatment. Review of Systems - Review of Systems Other: unable to review due to dementia - Medications/Allergies Allergies/Adverse Reactions: Allergies Allergy/AdvReac Type Severity Reaction Status Date / Time procaine Allergy Verified 09/21/18 23:57 Medications: Current Medications Acetaminophen (Tylenol) 650 mg PO Q4H PRN PRN Reason: Headache/Fever/Mild Pain (1-3) Last Admin: 09/23/18 07:56 Dose: 650 mg Acetaminophen (Tylenol) 650 mg [place] Q6H PRN PRN Reason: Pain Last Admin: 09/24/18 14:46 Dose: 650 mg Amlodipine Besylate (Norvasc) 5 mg PO DAILY [facility] Last Admin: 09/29/18 08:28 Dose: Not Given Atorvastatin Calcium (Lipitor) 20 mg PO HS [facility] Last Admin: 09/28/18 20:48 Dose: 20 mg Hydralazine HCl (Apresoline) 10 mg SLOW IVP Q4H PRN PRN Reason: SBP > 180 and HR < 70 Levofloxacin 500 mg/ Device 100 mls @ 100 mls/hr IVPB 2100 [facility] Last Admin: 09/28/18 20:12 Dose: 100 mls Lisinopril (Zestril) 30 mg PO DAILY [facility] Last Admin: 09/29/18 08:29 Dose: Not Given Lorazepam (Ativan) 0.5 mg PO Q4H PRN PRN Reason: Anxiety Last Admin: 09/29/18 00:48 Dose: 0.5 mg Metoprolol Tartrate (Lopressor) 25 mg PO BID [facility] Last Admin: 09/29/18 08:29 Dose: Not Given Morphine Sulfate (Morphine) 2 mg SLOW IVP Q4H PRN PRN Reason: Severe Pain (7-10) Last Admin: 09/28/18 21:22 Dose: 2 mg Tramadol HCl (Ultram) 50 mg PO Q6H PRN PRN Reason: Moderate Pain (4-6) Last Admin: 09/28/18 08:27 Dose: 50 mg
[2018-09-29] MEDS: Atorvastatin Calcium 20 MG TAB PO SCH (20:23)
[2018-09-30] MEDS ORDERED: Multivit, Adult Inj 10 ML VIAL IV SCH (07:15)
[2018-09-30] MEDS ORDERED: Multivitamins, Adult 10 ML in Dextrose 5 % And 0.9 % NaCl 1,000 ML IV SCH (07:30)
[2018-09-30 09:48] LABS: ALT (SGPT) 9 U/L (8-55); AST (SGOT) 23 U/L (5-34); Alkaline Phosphatase 40 U/L (40-150); Anion Gap 16 mmol/L (10-20); BUN (Urea Nitrogen) 24 mg/dL (9.8-20.1); Bilirubin, Total 0.8 mg/dL (0.2-1.2); Calc. Creatinine Clearance 65 mL/min (70-130); Calcium 8.1 mg/dL (7.8-10.44); Carbon Dioxide 16 mmol/L (23-31); Chloride 114 mmol/L (98-107); Estimated GFR-MDRD 82; Globulin 3.4 g/dL (2.4-3.5); Glucose 83 mg/dL (83-110); Magnesium 1.8 mg/dL (1.6-2.6); Potassium 3.8 mmol/L (3.5-5.1); Protein, Total 5.4 g/dL (6.0-8.3); Sodium 142 mmol/L (136-145)
[2018-09-30 10:27] LABS: Phosphorus 4.2 mg/dL (2.3-4.7)
[2018-09-30 10:41] LABS: Anisocytosis SLIGHT = 6-15 cells (100X) (0-5/hpf); Band 4 % (5-11); Hemoglobin 12.8 g/dL (12.0-16.0); Hypochromia SLIGHT = 6-15 cells (100X) (0-5/hpf); Lymphocytes 12 % (21-51); MDiff Complete? YES; Mean Corpuscular HGB CONC 30.2 g/dL (32.0-36.0); Mean Corpuscular Hemoglobin 25.1 pg (27.0-31.0); Mean Corpuscular Volume 83.1 fL (78.0-98.0); Mean Platelet Volume 6.6 fL (7.4-10.4); Monocytes 5 % (0-10); Neutrophil 78 % (42-75); Platelet Count 66 thou/uL (130-400); Platelet Morphology Comment Appears Decreased; RBC Distribution Width 22.5 % (11.5-14.5); Reactive Lymphocytes 1 % (0-10); Red Blood Cell (RBC) Count 5.08 mill/uL (4.20-5.40); White Blood Cell (WBC) Count 8.6 thou/uL (4.8-10.8)
[2018-09-30] MEDS ORDERED: Sodium Chloride 0.9% 1,000 ML IV SCH (11:00)
--- NOTE | 2018-09-30 11:24 | PDOC.PN ---
- Subjective Encounter Start Date: 09/30/18 Encounter Start Time: 09:40 this morning pt was hypotensive, bolus fluid given - Objective Resuscitation Status - Order Detail: 09/21/18 15:58 Resuscitation Status Routine Resuscitation Status: DNAR: NO Resuscitation Discussed with: discussed with the patient's daughter Yola MILLER Reviewed: Yes Vital Signs & Weight: Vital Signs (12 hours) Temp Pulse Resp BP Pulse Ox 09/30/18 10:18 92/57 L 09/30/18 09:44 26 H 92 L 09/30/18 08:25 98.3 F 86 38 H 78/52 L 90 L 09/30/18 08:00 92 L 09/30/18 04:00 97.7 F 78 22 H 90/56 L 94 L Weight Weight 130 lb I&O: 09/29/18 09/30/18 10/01/18 06:59 06:59 06:59 Intake Total 400 Balance 400 Result Diagrams: 09/30/18 07:55 09/30/18 07:55 Phys Exam - Physical Examination Constitutional: NAD HEENT: PERRLA, sclera anicteric dry MM Neck: no JVD, supple Respiratory: no wheezing, no rales, no rhonchi Cardiovascular: RRR, no significant murmur Gastrointestinal: soft, non-tender Musculoskeletal: no edema, pulses present Neurological: non-focal Lymphatic: no nodes Psychiatric: normal affect Skin: no rash, normal turgor Dx/Plan (1) CVA (cerebral vascular accident) Code(s): I63.9 - CEREBRAL INFARCTION, UNSPECIFIED Status: Chronic (2) Dysphagia as late effect of stroke Code(s): I69.391 - DYSPHAGIA FOLLOWING CEREBRAL INFARCTION Status: Chronic Comment: Spoke with daughter and MPOA, she confirmed that patient never wanted feeding tube after any of her previous strokes, wants to eat with risk no matter how severe (3) Hypertension Code(s): I10 - ESSENTIAL (PRIMARY) HYPERTENSION Status: Chronic (4) Fever Code(s): R50.9 - FEVER, UNSPECIFIED Status: Resolved Comment: Fever and low BP initially in ER qualifying as sepsis, now resolved, none since then, possibly had some aspiration but no infiltrate on CXR and normal WBC, on abx (5) Sepsis Code(s): A41.9 - SEPSIS, UNSPECIFIED ORGANISM Status: Resolved (6) Hypotension Status: Acute (7) Thrombocytopenia Code(s): D69.6 - THROMBOCYTOPENIA, UNSPECIFIED Status: Acute - Plan cont current plan of care, continue antibiotics, director of social services * based on her level of condition, pt should qualify for inpt hospice care for comfort care if family decide that direction * her prognosis is very poor * meanwhile will give her bolus fluid * add zosyn and continue levaquin * DC all blood pressure meds as she is not able to take anything PO * medication reviewed as below * symptomatic treatment. Review of Systems - Review of Systems Other: unable to review due to her level of cognitive status - Medications/Allergies Allergies/Adverse Reactions: Allergies Allergy/AdvReac Type Severity Reaction Status Date / Time procaine Allergy Verified 09/21/18 23:57 Medications: Current Medications Acetaminophen (Tylenol) 650 mg PO Q4H PRN PRN Reason: Headache/Fever/Mild Pain (1-3) Last Admin: 09/23/18 07:56 Dose: 650 mg Acetaminophen (Tylenol) 650 mg [place] Q6H PRN PRN Reason: Pain Last Admin: 09/24/18 14:46 Dose: 650 mg Atorvastatin Calcium (Lipitor) 20 mg PO HS [facility] Last Admin: 09/29/18 20:23 Dose: 20 mg Hydralazine HCl (Apresoline) 10 mg SLOW IVP Q4H PRN PRN Reason: SBP > 180 and HR < 70 Levofloxacin 500 mg/ Device 100 mls @ 100 mls/hr IVPB 2100 [facility] Last Admin: 09/29/18 20:21 Dose: 100 mls Multivitamins 10 ml/ Dextrose/ (Sodium Chloride) 1,010 mls @ 75 mls/hr IV .[id number] [facility] Stop: 09/30/18 20:57 Last Admin: 09/30/18 08:33 Dose: 1,010 mls Dextrose/Sodium Chloride (D5 0.9% Ns) 1,000 mls @ 75 mls/hr IV .[id number] [facility] Sodium Chloride (Normal Saline 0.9%) 1,000 mls @ 999 mls/hr IV ONE [facility] Stop: 09/30/18 12:00 Piperacillin Sod/Tazobactam (Sod 3.375 gm/ Sodium Chloride) 100 mls @ 200 mls/ hr IVPB Q6HR [facility] Lorazepam (Ativan) 0.5 mg PO Q4H PRN PRN Reason: Anxiety Last Admin: 09/29/18 20:21 Dose: 0.5 mg Morphine Sulfate (Morphine) 2 mg SLOW IVP Q4H PRN PRN Reason: Severe Pain (7-10) Last Admin: 09/28/18 21:22 Dose: 2 mg Tramadol HCl (Ultram) 50 mg PO Q6H PRN PRN Reason: Moderate Pain (4-6) Last Admin: 09/28/18 08:27 Dose: 50 mg
[2018-09-30] MEDS: Piperacillin/Tazobactam 3.375 GM in Sodium Chloride 0.9% 100 ML IVPB SCH ×2 (12:13→17:32)
--- NOTE | 2018-09-30 15:49 | DIS ---
DATE OF ADMISSION: 09/21/2018 DATE OF DISCHARGE: 09/30/2018 PRIMARY CARE PHYSICIAN: [facility] Call admission. DISCHARGE DISPOSITION: Hospice facility for comfort care. PRIMARY DISCHARGE DIAGNOSES: Sepsis with hypotension, bandemia, thrombocytopenia due to sepsis. SECONDARY DISCHARGE DIAGNOSES: History of cerebrovascular accident, dysphagia, physical deconditioning, dementia, hypertension. PRIMARY PROCEDURE/OPERATION: None. RADIOLOGICAL INVESTIGATION: Chest x-ray, CT angiography, forearm x-ray, shoulder x-ray. SIGNIFICANT LABORATORY DATA: WBC 8.6, hemoglobin 12.8, platelet 66. Sodium 140, potassium 3.8, creatinine 0.70. Liver enzymes normal. Lactic acid 1.5. Urinalysis unremarkable. Blood culture negative. Influenza negative. DISCHARGE MEDICATIONS: The patient is discharged to inpatient hospice for comfort care only, comfort care medication will be decided by hospice team at hospice facility. The patient was on the following medications prior to admission: 1. Amlodipine 5 mg daily. 2. Vitamin C 500 mg daily. 3. Cetirizine 10 mg daily. 4. Ferrous sulfate 325 mg daily. 5. Lisinopril 30 mg daily. 6. Metoprolol 25 mg b.i.d. 7. Potassium chloride 20 mEq p.o. daily. 8. Zocor 40 mg p.o. at bedtime. CONTRAINDICATION: None. CODE STATUS: DNR. INPATIENT CLOTH DYE RANGE OPERATOR: None. ALLERGIES: PROCAINE. DISCHARGE PLAN: Posthospital, the patient is discharged to inpatient hospice facility for comfort care. HOSPITAL COURSE: A 73-year-old female with above-mentioned medical problem, who was admitted by Dr. Wakefield please see her H and P for further details. The patient was having fever and she was meeting sepsis criteria, source of infection was not clear. She had CT angiography which was negative, all x-ray was negative for any fracture or dislocation. The patient was completely altered while in hospital. She was not able to take anything by mouth. She had hypotension. Her condition deteriorated. The patient does have poor quality of life. [facility]. Family member agreed with hospice care. Once we have hospice arranged, then this patient will be discharged to inpatient hospice facility for comfort care. On the day of discharge, the patient was hypotensive and bolus was given antibiotic she was receiving while in hospital without any significant improvement. The patient is seen and examined at bedside today. Please see my progress note from today for further detail. Job ID: [id number]
[2018-09-30] MEDS ORDERED: Dextrose 5 % And 0.9 % NaCl 1,000 ML IV SCH (18:00)
[2018-09-30] MEDS: Morphine 2 MG/ML SYRINGE SLOW IVP PRN (19:14)
[2018-09-30 19:34] VITALS: BP 88/52; TEMP 97.9
[2018-09-30] MEDS: Atorvastatin Calcium 20 MG TAB PO SCH (21:36)
== END 2018-09-30 21:20 | disposition hospice, inpatient (51) | DRG 871 ==
LOC: ERS 10:37 → ERHOLD 15:44 → OBSVTOIN 15:58 → T4-A 17:54
PROVIDERS: ADMIT Internal Medicine; ATTEND Internal Medicine
DX: A41.9 Sepsis, unspecified organism (principal); J69.0 Pneumonitis due to inhalation of food and vomit; L89.152 Pressure ulcer of sacral region, stage 2; I69.391 Dysphagia following cerebral infarction; I10 Essential (primary) hypertension; D69.6 Thrombocytopenia, unspecified; D72.825 Bandemia; F03.90 Unspecified dementia, unspecified severity, without behavioral disturbance, psychotic disturbance, mood disturbance, and anxiety
CPT/HCPCS: 36415; 51701; 70450; 71045; 71275; 72170; 80048; 80053; 81003; 83605; 83735; 84100; 85025; 87040; 87804; 93005; 94760; 96361; 96365; 96367; J1956; J2270; J2543; J3370; J7042; J7050; Q9966